=== PATIENT | female | born 1990 ===

== ENCOUNTER 2017-01-26 20:29 | Emergency (ER) | payer SELFPAY ==
[2017-01-26 20:29] VITALS: O2SAT 99
[2017-01-26 20:42] VITALS: BP 121/84; PULSE 118; RESP 18; TEMP 98
[2017-01-26] MEDS ORDERED: LIDOCAINE HCL 2% (VISCOUS) 20 ML SOL MT ONE (20:54)
[2017-01-26] MEDS ORDERED: LIDOCAINE HCL 2% (VISCOUS) 20 ML SOL ONE (20:56)
[2017-01-26] MEDS ORDERED: APAP/CODEINE 300/30 TAB PO ONE (21:12)
[2017-01-26] MEDS ORDERED: APAP/CODEINE 300/30 TAB ONE (21:19)
== END 2017-01-26 21:27 | disposition home or self-care (01) | DRG 159 ==
LOC: ED 20:29
DX: K08.89 Other specified disorders of teeth and supporting structures (principal)
CPT/HCPCS: 99282